=== PATIENT | male | born 1965 | race Two or more races ===

== ENCOUNTER 2016-11-22 19:31 | Emergency (ER) | payer MEDICAID ==
[~2016-11-22] VITALS: Ht 193 cm; Wt 129.3 kg
[2016-11-22 20:15] LABS: Basophils # (auto) 0.1 uL; Basophils % (auto) 0.9 % (0.0-2.0); Eosinophils # (auto) 0.2 uL; Eosinophils % (auto) 1.7 % (0.0-7.0); Hematocrit 42.6 % (41.0-53.0); Hemoglobin 14.4 g/dL (13.5-17.5); Lymphocytes # (auto) 2.2 uL; Lymphocytes % (auto) 23.6 % (10.0-50.0); Mean Corpuscular Hemoglobin 33.5 pg (28.0-32.0); Mean Corpuscular Hgb Conc. 33.8 g/dL (32.0-36.0); Mean Corpuscular Volume 99.1 fL (80.0-100.0); Mean Platelet Volume 8.6 fL (6.9-10.8); Monocytes # (auto) 0.7 uL; Monocytes % (auto) 7.6 % (0.0-12.0); Neutrophils # (auto) 6.2 uL; Neutrophils % (auto) 66.2 % (37.0-80.0); Nucleated Red Blood Cells % 0.1 %; Platelet Count (auto) 204 10^3/uL (140-450); Red Cell Distribution Width 13.6 % (11.8-14.3); White Blood Cell 9.3 10^3/uL (4.4-10.8)
[2016-11-22 20:35] LABS: INR 0.95 (0.9-1.15); Prothrombin Time 10.4 sec (9.37-12.3)
[2016-11-22 20:39] VITALS: BP 153/113
[2016-11-22 20:39] LABS: Albumin 3.8 g/dL (3.4-5.0); Alkaline Phosphatase 71 U/L (45-117); Anion Gap 7 (5-15); Aspartate Aminotransferase 29 U/L (15-37); BUN/Creatinine Ratio 21.7; Bilirubin, Total 0.5 mg/dL (0.2-1.0); Blood Urea Nitrogen 20 mg/dL (7-18); Calcium 8.9 mg/dL (8.5-10.1); Carbon Dioxide 25 mmol/L (21-32); Chloride 107 mmol/L (98-107); GFR African American 111 mL/min; GFR Non-African American 91 mL/min; Glucose 97 mg/dL (74-106); Sodium 139 mmol/L (136-145); Total Protein 7.6 g/dL (6.4-8.2)
== END 2016-11-22 21:44 | disposition home or self-care (01) ==
LOC: ER 19:41
DX: R04.0 Epistaxis (principal); I50.9 Heart failure, unspecified; I11.0 Hypertensive heart disease with heart failure; E78.5 Hyperlipidemia, unspecified; F17.210 Nicotine dependence, cigarettes, uncomplicated; Z82.49 Family history of ischemic heart disease and other diseases of the circulatory system
CPT/HCPCS: 30901; 36415; 80053; 80320; 85025; 85610; 85730

== ENCOUNTER 2016-11-23 00:11 | Emergency (ER) | payer MEDICAID ==
[~2016-11-23] VITALS: Ht 193 cm; Wt 129.3 kg
[2016-11-23] MEDS ORDERED: OXYMETAZOLINE HCL 0.05 % NASAL SPRAY 15ML ONE (00:45)
[2016-11-23 01:42] LABS: Basophils # (auto) 0 uL; Basophils % (auto) 0.5 % (0.0-2.0); Eosinophils # (auto) 0.1 uL; Eosinophils % (auto) 1.6 % (0.0-7.0); Hematocrit 44.1 % (41.0-53.0); Hemoglobin 14.8 g/dL (13.5-17.5); Lymphocytes # (auto) 1.5 uL; Lymphocytes % (auto) 19.5 % (10.0-50.0); Mean Corpuscular Hemoglobin 33.5 pg (28.0-32.0); Mean Corpuscular Hgb Conc. 33.5 g/dL (32.0-36.0); Mean Platelet Volume 8.8 fL (6.9-10.8); Monocytes # (auto) 0.5 uL; Monocytes % (auto) 6.7 % (0.0-12.0); Neutrophils # (auto) 5.6 uL; Neutrophils % (auto) 71.7 % (37.0-80.0); Platelet Count (auto) 198 10^3/uL (140-450); Red Cell Distribution Width 13.1 % (11.8-14.3); White Blood Cell 7.8 10^3/uL (4.4-10.8)
[2016-11-23 01:57] LABS: Albumin 4.1 g/dL (3.4-5.0); BUN/Creatinine Ratio 27.8; Calcium 9.5 mg/dL (8.5-10.1); INR 0.95 (0.9-1.15); Partial Thromboplastin Time 27.5 sec (22.64-33.71); Potassium 4.1 mmol/L (3.5-5.1); Prothrombin Time 10.3 sec (9.37-12.3)
[2016-11-23 02:00] LABS: Bilirubin, Total 0.7 mg/dL (0.2-1.0); Total Protein 7.9 g/dL (6.4-8.2)
[2016-11-23 02:29] LABS: Urine Bilirubin Negative (Negative); Urine Blood Negative /uL (Negative); Urine Color Yellow (Yellow); Urine Glucose Normal (Normal); Urine Ketone Negative (Negative); Urine Mucus FEW (None Seen); Urine Nitrite Negative (Negative); Urine RBC <1 /hpf (0 - 3); Urine Squamous Epithelial Cell FEW /hpf (<5); Urine Urobilinogen Normal (Negative); Urine pH 5.5 (5.0-8.0)
[2016-11-23] MEDS ORDERED: COCAINE HCL 4% TOP SOL 4ML TOP ONE ×2 (02:49→03:45)
[2016-11-23 03:16] VITALS: BP 137/70
== END 2016-11-23 03:37 | disposition home or self-care (01) ==
LOC: ER 00:13
DX: R04.0 Epistaxis (principal); F15.10 Other stimulant abuse, uncomplicated; I50.9 Heart failure, unspecified; I11.0 Hypertensive heart disease with heart failure; E78.5 Hyperlipidemia, unspecified; F17.210 Nicotine dependence, cigarettes, uncomplicated
CPT/HCPCS: 30901; 36415; 80053; 80307; 81001; 85025; 85610; 85730; 93005